=== PATIENT | male | born 1960 | race Caucasian/White ===

== ENCOUNTER 2021-11-07 10:56 | Emergency (ER) | payer OTHER, SELFPAY | END 2021-11-07 19:36 | disposition left against medical advice (07) | PROVIDERS: Emergency Provider Emergency Medicine; PCP Internal Medicine | DX: J02.9 Acute pharyngitis, unspecified (principal); R50.9 Fever, unspecified ==

== ENCOUNTER 2022-07-27 06:05 | Emergency (ER) | payer OTHER, SELFPAY ==
--- NOTE | ~2022-07-27 | CT_ITS ---
EXAMINATION: CT ABDOMEN AND PELVIS WITH CONTRAST CLINICAL INFORMATION: Left lower quadrant and periumbilical pain. COMPARISON: None TECHNIQUE: Multidetector volumetric images were obtained from the superior aspect of the liver through the pubic symphysis following administration 85 mL of Omnipaque 350 intravenous contrast. Sagittal and coronal reformatted images were obtained on the technologist's workstation. Oral contrast: No This CT examination was performed using dose optimization techniques as appropriate, variously including the following: *Automated exposure control *Adjustment of mA and/or kV according to patient size (this includes techniques or standardized protocols for targeted exams where dose is matched to indication/reason for exam; i.e. extremities or head) *Use of iterative reconstruction technique DLP: 747 mGy-cm FINDINGS: LUNG BASES: The visualized lung bases are unremarkable. LIVER, GALLBLADDER, AND BILIARY TREE: Unremarkable. PANCREAS: Unremarkable. SPLEEN: Unremarkable. ADRENAL GLANDS: Unremarkable. KIDNEYS AND URETERS: Mild pelvicaliectasis and ureterectasis bilaterally, left greater than right without obstructing abnormality. Tiny cortically based low attenuation foci bilaterally. No nephrolithiasis. BLADDER: Mildly distended. No focal mural or intraluminal abnormality. GASTROINTESTINAL TRACT: The stomach, small bowel and appendix are unremarkable. The colon shows mild to moderate diverticulosis distally, most pronounced in the sigmoid colon without surrounding abnormality. The rectum is unremarkable. ABDOMINAL WALL: Moderate fat-containing umbilical hernia. LYMPH NODES: No lymphadenopathy. VASCULAR: Unremarkable. PELVIC VISCERA: Mild prostatomegaly with an approximate volume of 46 cc. Mild prominence of the seminal vesicles bilaterally. Mild surrounding infiltrative changes. OSSEOUS STRUCTURES: Mild to moderate multilevel degenerative disc disease in the thoracolumbar spine most pronounced at L1-2 and L5-S1. No acute/suspicious abnormality. CT/CT abdomen pelvis w IV con IMPRESSION: 1. Mild prostatomegaly and prominence of the seminal vesicles bilaterally with surrounding infiltrative changes. Mild prostatitis cannot be excluded. 2. Mild dilatation of the renal collecting systems bilaterally, left greater than right without obstructing abnormality. Pre and post void urinary bladder ultrasound may be of value to assess for urinary retention. 3. Mild to moderate distal colonic diverticulosis without evidence for acute diverticulitis.
[2022-07-27 06:13] VITALS: BP 141/79; PULSE 57; RESP 16; TEMP 36.6; O2SAT 99; BMI 32.5
--- NOTE | 2022-07-27 06:43 | ED.ABDPAIN ---
HPI - Abdominal Pain General Chief Complaint: Abdominal Pain Stated Complaint: Abd pain Time Seen by Provider: 07/27/22 06:42 Source: patient Mode of arrival: ambulatory Limitations: no limitations History of Present Illness HPI narrative: 62 yo male hx of HTN, prior MV repair with mesh comes in with c/o periumbilical and LLQ pain since midnight. He has some mild nausea. Notes no vomiting or diarrhea. He denies this in the past. Does have a chronic umbilical hernia that is always out. MD elicited complaint: abdominal pain Pertinent past history: none Onset (ago): hour(s) (7) Pain Consistency: constant Location: periumbilical and LLQ Severity: moderate Quality: aching Radiation: none Migration to: no migration Exacerbating factors: movement Relieving factors: nothing Associated symptoms: nausea Related Data Previous Rx's Medication Instructions Recorded levofloxacin 500 mg tablet 500 mg PO DAILY 3 weeks #21 tabs 07/27/22 Allergies Allergy/AdvReac Type Severity Reaction Status Date / Time No Known Allergies Allergy Verified 07/27/22 06:18 [No Known Allergies*] Review of Systems Review of Systems Constitutional : No Weight loss, No Fever, No Chills ENT/Mouth : No sore throat, No Rhinorrhea Eyes: No Swelling, No Redness Cardiovascular : No Chest Pain, No SOB, NoEdema Respiratory : No Cough, No Sputum, No Wheezing Gastrointestinal : Positive Nausea, no Vomiting, no Diarrhea, positive abdominal Pain, No Hematochezia, No Melena Genitourinary : No Dysuria, No Urinary Frequency, No Hematuria, No Urgency Musculoskeletal : No joint pain, No Myalgias, No Joint Swelling Skin : No Skin Lesions, No rash Neuro : No Weakness, No Numbness, No Dizziness, No Headache Psych : No Anxiety/Panic, No Depression Heme/Lymph: No Bruising, No Lymphadenopathy Endocrine : No Polyuria, No Polydipsia All other systems reviewed and are negative. [facility] Past Medical History Attestation statement: The following information was validated with the patient. Medical History HTN (hypertension) Surgical History H/O mitral valve repair Social History Social History (Updated 07/27/22 @ 07:13 by Kelsey [place], DO) Patient Tobacco Use Status: Never used Tobacco Advance Directives: No Advance Directives Information Provided: No Physical Exam ED Vital Signs: Vital Signs - 24 hr 07/27/22 06:13 Temperature 97.9 F Pulse Rate 57 Respiratory Rate 16 Blood Pressure 141/79 H Pulse Oximetry 99 Oxygen Delivery Method Room Air BMI result Body Mass Index 32.5 Appearance: Alert. Oriented X3. No acute distress. Eyes: Pupils equal, round and reactive to light. ENT: Pharynx normal. Neck: Normal inspection. Neck supple. CVS: Normal heart rate and rhythm. Pulses normal. Respiratory: No respiratory distress. Breath sounds normal. Abdomen: Soft and noted UH but it is soft and mildly reduced he has lower abdominal ttp in LLQ and periumbilical area no rebound Skin: Skin warm and dry. Normal skin color. Normal skin turgor. Extremities: No lower extremity edema. No calf ttp Neuro: Oriented X 3. No motor deficit. No sensory deficit. Course Course Course Narrative: will treat for prostatitis start on flomax has no issues voiding has voided here 3 times no signs of retention will have him follow up with Urologist MDM - Abdominal Pain MDM Narrative Medical decision making narrative: 62 yo male with hx of HTN and MV repair comes in with c/o abdominal pain since midnight - at this time labs and UA, IV Morphine for pain ordered. CT scan to assess for appendicitis/diverticulitis. His hernia could have obstruction though on exam that seems less likely. Lab Data Result diagrams: 07/27/22 07:29 07/27/22 07:29 Labs: Lab Results 07/27/22 07/27/22 07/27/22 Range/Units 07:29 07:29 07:29 WBC 7.8 (4.8-10.8) X10*3/uL RBC 4.36 L (4.60-5.80) X10*6/uL Hgb 14.2 (14.0-18.0) g/dl Hct 40.2 L (42.0-52.0) % MCV 92.2 (80.0-98.0) fL MCH 32.6 (27.0-33.0) pg MCHC 35.3 (31.0-36.0) g/dl RDW 12.5 (11.0-16.0) % Plt Count 158 L (160-400) X10*3/uL MPV 10.0 (9.4-12.4) fL Immature Gran % (Auto) 0.5 H (0.0-0.4) % Neut % (Auto) 74.0 H (45-73) % Lymph % (Auto) 17.3 L (20-40) % Cassia % (Auto) 7.0 (2-11) % Eos % (Auto) 0.6 (0-4) % Baso % (Auto) 0.6 (0-2) % Lymph # (Auto) 1.4 (1.2-4.9) X10*3/uL Cassia # (Auto) 0.6 (0.1-1.2) X10*3/uL Eos # (Auto) 0.1 (0.0-0.4) X10*3/uL Baso # (Auto) 0.1 (0.0-0.2) X10*3/uL Abs Immat Gran (auto) 0.04 H (0.00-0.03) X10*3/uL Absolute Neuts (auto) 5.8 (2.0-8.3) x10*3/uL Absolute Nucleated RBC 0.000 (0.0-0.012) X10*3/uL Nucleated RBC % (auto) 0.0 (0.0-0.2) /100WBC Sodium 141 (135-145) mmol/L Potassium 4.1 (3.3-5.1) mmol/L Chloride 105 (96-108) mmol/L Carbon Dioxide 22 (22-29) mmol/L Anion Gap 18 (12-20) BUN 16 (9-16) mg/dL Creatinine 0.82 (0.5-1.4) mg/dL Estim Creat Clear Calc 110.1 Estimated GFR > 60 Random Glucose 110 (60-115) mg/dL Calcium 8.9 (8.4-10.2) mg/dL Magnesium 2.0 (1.6-2.6) mg/dL Total Bilirubin 0.9 (0.0-1.0) mg/dL Direct Bilirubin 0.3 (0.0-0.5) mg/dL AST 30 (5-37) U/L ALT 30 (0-40) U/L Alkaline Phosphatase 65 (39-117) U/L Total Protein 8.1 H (6.5-8.0) g/dL Albumin 3.9 (3.5-5.0) g/dL Lipase 11 (8-78) U/L Urine Color Urine Appearance Urine pH (5.0-9.0) Ur Specific [place] (1.005-1.025) Urine Protein (Neg-Trace) mg/dL Urine Glucose (UA) (Negative) mg/dL Urine Ketones (Negative) mg/dL Urine Blood (Negative) Urine Nitrite (Negative) Ur Leukocyte Esterase (Negative) COVID-19 ([facility]) Negative (Negative) COVID-19 Clin Com See Note 07/27/22 Range/Units 07:29 WBC (4.8-10.8) X10*3/uL RBC (4.60-5.80) X10*6/uL Hgb (14.0-18.0) g/dl Hct (42.0-52.0) % MCV (80.0-98.0) fL MCH (27.0-33.0) pg MCHC (31.0-36.0) g/dl RDW (11.0-16.0) % Plt Count (160-400) X10*3/uL MPV (9.4-12.4) fL Immature Gran % (Auto) (0.0-0.4) % Neut % (Auto) (45-73) % Lymph % (Auto) (20-40) % Cassia % (Auto) (2-11) % Eos % (Auto) (0-4) % Baso % (Auto) (0-2) % Lymph # (Auto) (1.2-4.9) X10*3/uL Cassia # (Auto) (0.1-1.2) X10*3/uL Eos # (Auto) (0.0-0.4) X10*3/uL Baso # (Auto) (0.0-0.2) X10*3/uL Abs Immat Gran (auto) (0.00-0.03) X10*3/uL Absolute Neuts (auto) (2.0-8.3) x10*3/uL Absolute Nucleated RBC (0.0-0.012) X10*3/uL Nucleated RBC % (auto) (0.0-0.2) /100WBC Sodium (135-145) mmol/L Potassium (3.3-5.1) mmol/L Chloride (96-108) mmol/L Carbon Dioxide (22-29) mmol/L Anion Gap (12-20) BUN (9-16) mg/dL Creatinine (0.5-1.4) mg/dL Estim Creat Clear Calc Estimated GFR Random Glucose (60-115) mg/dL Calcium (8.4-10.2) mg/dL Magnesium (1.6-2.6) mg/dL Total Bilirubin (0.0-1.0) mg/dL Direct Bilirubin (0.0-0.5) mg/dL AST (5-37) U/L ALT (0-40) U/L Alkaline Phosphatase (39-117) U/L Total Protein (6.5-8.0) g/dL Albumin (3.5-5.0) g/dL Lipase (8-78) U/L Urine Color Yellow Urine Appearance Clear Urine pH 6.5 (5.0-9.0) Ur Specific [place] 1.015 (1.005-1.025) Urine Protein Negative (Neg-Trace) mg/dL Urine Glucose (UA) Negative (Negative) mg/dL Urine Ketones Negative (Negative) mg/dL Urine Blood Negative (Negative) Urine Nitrite Negative (Negative) Ur Leukocyte Esterase Negative (Negative) COVID-19 ([facility]) (Negative) COVID-19 Clin Com Discharge Plan Discharge Clinical Impression: Acute prostatitis Patient Disposition: Home, Self-Care Instructions: Prostatitis (ED) Additional Instructions: return to ED for any worsening symptoms or concerns please follow up with your primary care doctor these antibiotics are very long-term and require monitoring you should also get PSA monitoring do not exercise or lift heavy things while on medication it can cause tendon injury Prescriptions: New levofloxacin 500 mg tablet 500 mg PO DAILY 21 Days Qty: 21 0RF Referrals: Azael Loera MD [Physician] - 2 weeks Je Flanagan MD [Primary Care Provider] - 5 days Stand Alone Forms: Work/School Release
[2022-07-27] MEDS: Lactated Ringers 1,000 ML 999 ML IV (07:35)
[2022-07-27 07:37] LABS: MANUAL DIFF FLAG NO
[2022-07-27 07:38] LABS: Appearance Urine Clear; Basophils Absolute Auto 0.1 X10*3/uL (0.0-0.2); Basophils Percent Auto 0.6 % (0-2); Color Urine Yellow; Eosinophils Absolute Auto 0.1 X10*3/uL (0.0-0.4); Eosinophils Percent Auto 0.6 % (0-4); Glucose Urine UA Negative (Negative); Hematocrit 40.2 % (42.0-52.0); Hemoglobin 14.2 g/dl (14.0-18.0); Imm Gran Abs Auto 0.04 X10*3/uL (0.00-0.03); Imm Gran Pct Auto 0.5 % (0.0-0.4); Leukocyte Esterase Urine Negative (Negative); Lymphocytes Absolute Auto 1.4 X10*3/uL (1.2-4.9); Lymphocytes Percent Auto 17.3 % (20-40); Mean Corpuscular HGB Conc 35.3 g/dl (31.0-36.0); Mean Corpuscular Hemoglobin 32.6 pg (27.0-33.0); Mean Corpuscular Volume 92.2 fL (80.0-98.0); Monocytes Absolute Auto 0.6 X10*3/uL (0.1-1.2); Neutrophils Absolute Auto 5.8 x10*3/uL (2.0-8.3); Nitrite Urine Negative (Negative); PH 6.5 (5.0-9.0); Platelet Count 158 X10*3/uL (160-400); Red Blood Count 4.36 X10*6/uL (4.60-5.80); Red Cell Distribution Width 12.5 % (11.0-16.0); Specific Gravity - Urine 1.015 (1.005-1.025); Urine Blood Negative (Negative); Urine Ketones Negative (Negative); Urine Protein Negative (Neg-Trace); White Blood Count 7.8 X10*3/uL (4.8-10.8)
--- NOTE | 2022-07-27 07:38 | PC.NURSE ---
alert, nad, pain has subsided, no nausea, declined meds
[2022-07-27 07:56] LABS: COVID-19 Test Negative (Negative); IDNOW Serial# 9DB6401D
[2022-07-27 08:05] LABS: Alanine Aminotransferase 30 U/L (0-40); Albumin Level 3.9 g/dL (3.5-5.0); Alkaline Phosphatase 65 U/L (39-117); Anion Gap 18 (12-20); Aspartate Amino Transferase 30 U/L (5-37); Bilirubin Direct 0.3 mg/dL (0.0-0.5); Bilirubin Total 0.9 mg/dL (0.0-1.0); Blood Urea Nitrogen 16 mg/dL (9-16); Calcium 8.9 mg/dL (8.4-10.2); Carbon Dioxide 22 mmol/L (22-29); Chloride 105 mmol/L (96-108); Creatinine Clr Calc Pharmacy 110.1; Estimated Glomerular Filt Rate > 60; Glucose Random 110 mg/dL (60-115); Lipase 11 U/L (8-78); Potassium 4.1 mmol/L (3.3-5.1); Sodium 141 mmol/L (135-145); Total Protein 8.1 g/dL (6.5-8.0)
[2022-07-27] MEDS: iohexoL 350 MG/ML 100 ML INFUS..BTL IV (08:42)
[2022-07-27] MEDS: levoFLOXacin 500 MG TABLET PO (10:02)
== END 2022-07-27 10:45 | disposition home or self-care (01) ==
PROVIDERS: Emergency Provider Emergency Medicine; PCP Internal Medicine
DX: N41.0 Acute prostatitis (principal); R10.32 Left lower quadrant pain; Z20.822 Contact with and (suspected) exposure to COVID-19; Z79.899 Other long term (current) drug therapy
CPT/HCPCS: 74177; 80048; 80076; 81003; 83690; 83735; 85025; 87635; 99283; 99284; Q9967

== ENCOUNTER 2023-10-30 01:17 | Emergency (ER) | payer OTHER, SELFPAY ==
--- NOTE | ~2023-10-30 | XR_ITS ---
EXAMINATION: XR CHEST CLINICAL INFORMATION: Left-sided chest pain COMPARISON: None available. TECHNIQUE: 2 views of the chest were obtained. FINDINGS: The patient is status post median sternotomy. Probable trace left basilar atelectasis. No convincing evidence of focal consolidation, interstitial pulmonary edema or pneumothorax. Mild biapical pleural thickening is noted. No significant abnormality is noted involving the heart, mediastinum, bony thorax or soft tissues. XR/XR chest 2V IMPRESSION: No significant cardiopulmonary disease.
[2023-10-30 01:19] VITALS: BP 193/115; PULSE 62; RESP 20; TEMP 36.2; O2SAT 97; BMI 31.7
--- NOTE | 2023-10-30 01:19 | ECG_ITS ---
Test Reason : chest pain Blood Pressure : / mmHG Vent. Rate : 068 BPM Atrial Rate : 068 BPM P-R Int : 188 ms QRS Dur : 092 ms QT Int : 418 ms P-R-T Axes : 057 -45 031 degrees QTc Int : 444 ms Normal sinus rhythm Left anterior fascicular block Cannot rule out Anterior infarct , age undetermined Abnormal ECG No previous ECGs available Referred By: Generic ED Physician Electronically Signed By:WILLIAM ADAIR MD
[2023-10-30 01:37] LABS: MANUAL DIFF FLAG NO
[2023-10-30 01:38] LABS: Basophils Absolute Auto 0.1 X10*3/uL (0.0-0.2); Basophils Percent Auto 0.7 % (0-2); Eosinophils Absolute Auto 0.1 X10*3/uL (0.0-0.4); Eosinophils Percent Auto 1.6 % (0-4); Hematocrit 43.8 % (42.0-52.0); Hemoglobin 16.1 g/dl (14.0-18.0); Imm Gran Abs Auto 0.03 X10*3/uL (0.00-0.03); Imm Gran Pct Auto 0.4 % (0.0-0.4); Lymphocytes Absolute Auto 2.2 X10*3/uL (1.2-4.9); Mean Corpuscular HGB Conc 36.8 g/dl (31.0-36.0); Mean Corpuscular Hemoglobin 34.3 pg (27.0-33.0); Mean Corpuscular Volume 93.2 fL (80.0-98.0); Mean Platelet Volume 9.8 fL (9.4-12.4); Monocytes Absolute Auto 0.5 X10*3/uL (0.1-1.2); Monocytes Percent Auto 7.2 % (2-11); Neutrophils Percent Auto 58.1 % (45-73); Platelet Count 170 X10*3/uL (160-400); Red Cell Distribution Width 12.3 % (11.0-16.0)
[2023-10-30 01:58] LABS: Anion Gap 17 (12-20); Blood Urea Nitrogen 9 mg/dL (9-16); Carbon Dioxide 22 mmol/L (22-29); Chloride 103 mmol/L (96-108); Creatinine Clr Calc Pharmacy 135.7; Estimated Glomerular Filt Rate > 60; Glucose Random 119 mg/dL (60-115); Potassium 3.8 mmol/L (3.3-5.1); Sodium 138 mmol/L (135-145)
[2023-10-30 02:03] LABS: Troponin-I High Sensitivity 15.1 ng/L (<3.5-35.0)
[2023-10-30 04:52] LABS: Troponin-I High Sensitivity 14.5 ng/L (<3.5-35.0)
[2023-10-30 05:45] VITALS: BP 200/105; PULSE 54; RESP 18; TEMP 36.4; O2SAT 97
[2023-10-30 07:53] VITALS: BP 196/98; PULSE 56; RESP 16; O2SAT 97
--- NOTE | 2023-10-30 07:55 | PC.NURSE ---
PT REPORTS RESOLVED CP BUT HAS SOME ARM SXS THAT CONTINUE.
--- NOTE | 2023-10-30 08:08 | ED_ITS ---
HPI - Chest Pain General Chief Complaint: Chest Pain Stated Complaint: CP Time Seen by Provider: 10/30/23 08:08 History of Present Illness HPI narrative: The patient is a 63-year-old male with history of hypertension. He also has a history of mitral valve surgery about 6 or 7 years ago. He says that he had a mitral valve repair surgery. He says that he had a preoperative angiogram did not show significant coronary disease. He believes he has subsequently had another angiogram that also did not show significant coronary disease. The patient says that he briefly had postoperative atrial fibrillation after his mitral valve surgery but has not had any other episodes of atrial fibrillation and he is not on anticoagulation medication. The patient says that he works at a local [employer]. He normally goes to work at around 1 or 02:00 in the morning. He says he did not do much yesterday on Monday. At around midnight he woke up and felt that he had a sharp pain in his left chest. The pain lasted over an hour. He came to the emergency room therefore instead of going to work. The pain has since subsided. Related Data Previous Rx's Medication Instructions Recorded levofloxacin 500 mg tablet 500 mg PO DAILY 3 weeks #21 tabs 07/27/22 Allergies Allergy/AdvReac Type Severity Reaction Status Date / Time No Known Allergies Allergy Verified 07/27/22 06:18 [No Known Allergies*] Review of Systems 2 Review of Systems: Yes all other systems are reviewed and are negative [facility] Past Medical History Medical History HTN (hypertension) Surgical History H/O mitral valve repair Social History Social History (Updated 07/27/22 @ 07:13 by Kelsey Alexander DO) Patient Tobacco Use Status: Never used Tobacco Advance Directives: No Advance Directives Information Provided: No Physical Exam 2 Vital Signs: Vital Signs: Last Vital Signs Temp 97.6 F 10/30/23 05:45 Pulse 51 10/30/23 09:42 Resp 14 10/30/23 09:42 BP 181/95 H 10/30/23 09:42 Pulse Ox 98 10/30/23 09:42 O2 Del Method Room Air 10/30/23 09:42 BMI result Body Mass Index 31.7 Const: Other: The patient is awake, alert, pleasant, cooperative. He does not appear in acute distress. HEENT: Other: Face is unremarkable. Mucous membranes moist. Face is symmetrical. Eyes: Other: Pupils are round equal, conjunctivae clear Neck: Other: No JVD Resp: Other: Lungs are clear bilaterally Cardio: Other: Regular rate and rhythm no murmur GI: Other: Abdomen soft nontender Skin: Other: Skin is dry and unremarkable. Neuro: Other: The patient is awake, alert, pleasant, cooperative. Speech is clear. Face symmetrical. Moving all 4 extremities symmetrically. Grossly neurologically intact. Extrem: Other: No peripheral edema. No calf swelling or tenderness. No asymmetry. Medical Decision Making Medical Decision Making [facility] Narrative: Patient is a 63-year-old male who has a history of previous mitral valve surgery several years ago but does not have a definite history of coronary disease. He woke around midnight tonight with left-sided chest pain that radiated into the shoulder. He came here after about an hour obtain monitor flat. EKG is not obviously ischemic (no old EKGs for comparison). His pain resolved spontaneously. He he looks well. His chest x-ray is negative. Other labs unremarkable. I think it may be discharged follow-up with his regular doctor. His blood pressure was somewhat high but he had not yet taken his morning blood pressure medications. 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 He should return if worse. Lab Data 10/30/23 01:33 10/30/23 01:33 Labs: Lab Results 10/30/23 10/30/23 Range/Units 01:33 04:27 WBC 7.0 (4.8-10.8) X10*3/uL RBC 4.70 (4.60-5.80) X10*6/uL Hgb 16.1 (14.0-18.0) g/dl Hct 43.8 (42.0-52.0) % MCV 93.2 (80.0-98.0) fL MCH 34.3 H (27.0-33.0) pg MCHC 36.8 H (31.0-36.0) g/dl RDW 12.3 (11.0-16.0) % Plt Count 170 (160-400) X10*3/uL MPV 9.8 (9.4-12.4) fL Immature Gran % (Auto) 0.4 (0.0-0.4) % Neut % (Auto) 58.1 (45-73) % Lymph % (Auto) 32.0 (20-40) % [place] % (Auto) 7.2 (2-11) % Eos % (Auto) 1.6 (0-4) % Baso % (Auto) 0.7 (0-2) % Lymph # (Auto) 2.2 (1.2-4.9) X10*3/uL [place] # (Auto) 0.5 (0.1-1.2) X10*3/uL Eos # (Auto) 0.1 (0.0-0.4) X10*3/uL Baso # (Auto) 0.1 (0.0-0.2) X10*3/uL Abs Immat Gran (auto) 0.03 (0.00-0.03) X10*3/uL Absolute Neuts (auto) 4.0 (2.0-8.3) x10*3/uL Absolute Nucleated RBC 0.000 (0.0-0.012) X10*3/uL Nucleated RBC % (auto) 0.0 (0.0-0.2) /100WBC Sodium 138 (135-145) mmol/L Potassium 3.8 (3.3-5.1) mmol/L Chloride 103 (96-108) mmol/L Carbon Dioxide 22 (22-29) mmol/L Anion Gap 17 (12-20) BUN 9 (9-16) mg/dL Creatinine 0.65 (0.5-1.4) mg/dL Estim Creat Clear Calc 135.7 Estimated GFR > 60 Random Glucose 119 H (60-115) mg/dL Calcium 9.0 (8.4-10.2) mg/dL Troponin I High Sens 15.1 14.5 (<3.5-35.0) ng/L Independent Interpretation I performed an independent interpretation of an: EKG Interpretation: EKG at 01:23 shows normal sinus rhythm at 60 beats per minute. No previous EKGs available for comparison. No definite acute ischemic changes. Discharge Plan Discharge Clinical Impression: Chest pain Patient Disposition: Home, Self-Care Additional Instructions: Your testing in the emergency room today is reassuring. There is no suggestion that your symptoms are related to a heart attack. Please continue your regular medications. Please follow-up soon with your regular doctor and your livestock haulier to discuss how you are doing and also to keep an eye on your blood pressure. Please take your blood pressure medications this morning. Return to the emergency was significantly worse. Prescriptions: No Action levofloxacin 500 mg tablet 500 mg PO DAILY 21 Days Qty: 21 0RF Referrals: Cesar Nielson MD [Physician] - Je Flanagan MD [Primary Care Provider] - (Hypertension, chest pain) Interventions: ED Discharge Assessment Last Done: 10/30/23 09:45 Discharge Date/Time: 10/30/23 09:46
[2023-10-30 09:42] VITALS: BP 181/95; PULSE 51; RESP 14; O2SAT 98
== END 2023-10-30 09:46 | disposition home or self-care (01) ==
PROVIDERS: Emergency Provider Emergency Medicine; PCP Internal Medicine
DX: R07.89 Other chest pain (principal); Z79.899 Other long term (current) drug therapy
CPT/HCPCS: 36415; 71046; 80048; 84484; 85025; 93005; 99284

== ENCOUNTER → 2023-10-30 01:19 | Outpatient (BNV) | payer OTHER, SELFPAY | PROVIDERS: Emergency Provider Emergency Medicine; PCP Internal Medicine; Visit Provider Internal Medicine Cardiovascular Disease | DX: R07.9 Chest pain, unspecified (principal) | CPT/HCPCS: 93010 ==